=== PATIENT | male | born 1975 | race Caucasian/White ===

== ENCOUNTER → 2024-03-27 16:58 | Outpatient (REF) | payer BC, SELFPAY | LOC: RAD 16:58 | PROVIDERS: ATTENDING PHYSICIAN Physician Assistant Surgical; FAMILY PHYSICIAN Internal Medicine | DX: S05.50XA Penetrating wound with foreign body of unspecified eyeball, initial encounter (principal) | CPT/HCPCS: 70030 ==

== ENCOUNTER 2024-04-24 14:57 | Emergency (ER) | payer BC, SELFPAY ==
[2024-04-24 15:21] VITALS: BP 124/83
[2024-04-24 15:43] LABS: % Basophils 0.4 % (0-2); % Eosinophils 1.2 % (0-6); % Lymphocytes 34.9 % (20.5-51.1); % Monocytes 9.2 % (1.7-9.3); % Neutrophils 54.3 % (42.2-75.2); Absolute Eosinophils 0.1 10^3/uL (0-0.7); Absolute Lymphocytes 1.8 10^3/uL (1.2-3.4); Absolute Monocytes 0.5 10^3/uL (0.1-0.6); Absolute Neutrophils 2.8 10^3/uL (1.4-6.5); Hematocrit 43.3 % (39.0-52.0); Hemoglobin 14.9 g/dL (13.0-18.0); Mean Corp Hgb Conc. 34.4 g/dL (33.0-37.0); Mean Corpuscular Hgb 30.3 pg (27.0-31.0); Mean Corpuscular Volume 88.2 fL (80.0-94.0); Mean Platelet Volume 8.2 fL (7.4-10.4); Nucleated Red Blood Cells % 0 % (-); Platelet Count 195 10^3/uL (130-400); Red Blood Cell Count 4.91 10^6/uL (4.70-6.10); Red Cell Dist. Width 11.6 % (11.5-14.5); White Blood Cell Count 5.1 10^3/uL (4.8-10.8)
[2024-04-24 15:57] LABS: ALT (SGPT) 22 U/L (0-50); AST (SGOT) 35 U/L (17-59); Albumin 4.7 g/dl (3.5-5.0); Alkaline Phosphatase 90 U/L (38-126); Blood Urea Nitrogen 33 mg/dl (9-20); Carbon Dioxide 31 mmol/L (22-30); Chloride 98 mmol/L (98-107); Glucose 94 mg/dl (70-99); Sodium 136 mmol/L (135-145); Total Bilirubin 0.7 mg/dl (0.2-1.3); Total Protein 7.1 g/dl (6.3-8.2); eGFR > 60.00
[2024-04-24 16:08] LABS: Troponin I < 0.012 ng/ml
[2024-04-24 17:32] VITALS: BP 128/76
--- NOTE | 2024-04-24 18:56 | ED.GENMED ---
History of Present Illness
General
Chief Complaint: Fainting Sensation
Source: patient
Exam Limitations: none
Time Seen by Provider: 04/24/24 18:46
Nursing documentation reviewed up to this point in time: agreed with
History of Present Illness
History of Present Illness:
Patient to ED with complaint of dizziness. States symptoms started this past weekend. Denies fever/chills, recent illness. Reports mild headache. Dizziness triggered by head movement. Brought to ED by spouse for eval.
Past History
Past History
ED Past Medical History: HTN and Other (RA)
Review of Systems
Review of Systems
Allergies reviewed?: Yes
All Other Systems: ROS reviewed and negative except as documented in HPI and ROS
Constitutional: Reports no symptoms
EENT: Reports no symptoms
Respiratory: Reports no symptoms
Cardiac: Reports no symptoms
ABD/GI: Reports no symptoms
: Reports no symptoms
Musculoskeletal: Reports no symptoms
Skin: Reports no symptoms
Neurological: Reports dizzy and headache
Psychiatric: Reports no symptoms
Phy Exam
General Physical Exam
General Presentation: well appearing and mild distress
General age: appears stated age
General Skin: warm and dry
General Habitus: normal
ENT Exam
ENT Exam: EOMI, TM's normal, neck supple, normocephalic and swallowing well
Eye Exam
Eye Exam: PERRL, EOMI, conjunctiva normal, globe normal and other (No nystagmus)
Neurological Exam
Neurological Exam: alert, oriented x3, CN II-XII intact, no motor deficits, no sensory deficits and speech normal
[place] Coma Scale
Eye Opening: Spontaneous
Verbal Response: Oriented
Motor Response: Obeys Commands
GCS Total Score: 15
Musculoskeletal Exam
Musculoskeletal Exam: full ROM and neuro vasc intact
Skin Exam
Skin Exam: normal color, warm/dry and no rash
Psychiatric Exam
Psychiatric Exam: normal mood/affect
Course
Orders/Labs/Results
Orders:
Orders
04/24/24 15:25
Electrocardiogram (*1) Urgent
Reason for Study: Chest Pain
EKG- Treatment ONCE
04/24/24 15:35
Complete Blood Count/With Diff Urgent
Comprehensive Metabolic Panel Urgent
Troponin I Urgent
04/24/24 18:55
Meclizine [Antivert] 25 mg PO NOW STA
04/24/24 18:56
CT Head W/o Iv Contrast Urgent
Comment:
Reason For Exam: pain, dizziness
04/24/24 19:05
COVID-19 Antigen Urgent
Source: Nasal Swab
Influenza A+B Rapid Molecular Urgent
SHAYNE Source: Nasal Swab
Specimen Description:
Abnormal Lab Results
04/24/24
15:35
Carbon Dioxide 31 H mmol/L
(22-30)
BUN 33 H mg/dl
(9-20)
Creatinine 1.4 H mg/dL
(0.7-1.3)
04/24/24 15:35
04/24/24 15:35
Vital Signs
Initial and Last Documented VS:
Initial Vital Signs
Pulse Resp BP Pulse Ox
64 15 124/83 99
04/24/24 15:21 04/24/24 15:21 04/24/24 15:21 04/24/24 15:21
Last Documented Vital Signs
Temp Pulse Resp BP Pulse Ox
98.0 F 61 18 128/76 98
04/24/24 17:32 04/24/24 17:32 04/24/24 19:17 04/24/24 17:32 04/24/24 17:32
*Radiology
Radiology exam reviewed: radiology read reviewed
*Pulse Oximetry
Patient hypoxic: no
*Critical Care Note
Total Time (30-74mins, 75-104mins- exclusive of procedures): Not Applicable
Update Note
Update Note:
Patient to ED with complaint of dizziness. Positional dizziness. No fver/chills recent illness. Labs, CT reviewed with him. No concerning findings on exam today. Placed on Meclazine, rx sent to pharmacy. Given info on Vestibular rehab. He will
call in AM to schedule appt
ED Attending Note
-
Portions of this chart may have been created with voice recognition software.� Occasional wrong word or��sound alike� substitutions may have occurred due to the inherent limitations of voice recognition software.
Discharge Plan
Departure
Patient Disposition: Home (Routine Discharge)
Date of Disposition: 04/24/24
Time of Disposition: 21:24
Patient with high blood pressure during this ER visit?: No
Condition: Good
Covid-19: Not Applicable
Discharge Problem:
Vertigo
Instructions: Vertigo ED
Prescriptions:
New
meclizine 25 mg tablet
25 mg PO TID PRN (Reason: dizziness) Qty: 20 0RF
Referrals:
Alexus Rebollar DO [Family Provider] - Follow up in 2-3 days
Interventions
Interventions:
*Risk Screen - Suicide Last Done: 04/24/24 15:21
*General Assessment Last Done: 04/24/24 15:21
*Neglect/Abuse Screening Last Done: 04/24/24 15:21
ED- Fall Risk Assessment Last Done: 04/24/24 21:29
*ED COVID-19 Vaccine History Last Done: 04/24/24 21:29
*Nursing Disposition Last Done: 04/24/24 21:29
ED- Cardiac Assessment Last Done: 04/24/24 19:17
ED- Neurological Assessment Last Done: 04/24/24 19:17
Discharge Date and Time
Discharge Date/Time: 04/24/24 21:30
Print Language: CZECH
[2024-04-24] MEDS: ANTIVERT 25 MG PO (18:59)
[2024-04-24 19:34] LABS: COVID-19 Antigen Negative (Negative)
== END 2024-04-24 21:30 | disposition home or self-care (01) ==
LOC: EMR 14:57
PROVIDERS: Nurse Practitioner; EMERGENCY PHYSICIAN Emergency Medicine; FAMILY PHYSICIAN Internal Medicine
DX: R42 Dizziness and giddiness (principal); R51.9 Headache, unspecified; Z11.52 Encounter for screening for COVID-19; I10 Essential (primary) hypertension; M06.9 Rheumatoid arthritis, unspecified; Z88.5 Allergy status to narcotic agent
CPT/HCPCS: 99284; 70450; 80053; 84484; 85025; 87502; 87811; 93005

== ENCOUNTER → 2024-05-16 13:10 | Outpatient (REF) | payer BC, SELFPAY | LOC: RAD 13:10 | PROVIDERS: ATTENDING PHYSICIAN Internal Medicine | DX: M79.641 Pain in right hand (principal) | CPT/HCPCS: 73130 ==

== ENCOUNTER → 2024-05-24 10:40 | Outpatient (REF) | payer BC, SELFPAY | LOC: RAD 10:40 | PROVIDERS: ATTENDING PHYSICIAN Physician Assistant Surgical; FAMILY PHYSICIAN Internal Medicine | DX: S05.50XA Penetrating wound with foreign body of unspecified eyeball, initial encounter (principal) | CPT/HCPCS: 70030 ==

== ENCOUNTER → 2025-02-20 14:19 | Outpatient (REF) | payer BC, SELFPAY | LOC: RAD 14:19 | PROVIDERS: ATTENDING PHYSICIAN Physician Assistant Surgical; FAMILY PHYSICIAN Internal Medicine | DX: S05.50XA Penetrating wound with foreign body of unspecified eyeball, initial encounter (principal) | CPT/HCPCS: 70030 ==

== ENCOUNTER → 2025-03-04 14:52 | Outpatient (REF) | payer BC, SELFPAY | LOC: EMG 14:52 | PROVIDERS: ATTENDING PHYSICIAN Physician Assistant Surgical; FAMILY PHYSICIAN Internal Medicine | DX: M25.551 Pain in right hip (principal); R20.0 Anesthesia of skin | CPT/HCPCS: 95886; 95910 ==